=== PATIENT | female | born 1980 | race Caucasian/White ===

== ENCOUNTER 2017-08-16 14:47 | Emergency (ER) | payer BC, OTHER ==
[~2017-08-16] VITALS: Ht 162.6 cm; Wt 91.0 kg
[~2017-08-16 14:47] MED LIST: CLR10 PO; FRRS300 PO; MTR600X PO
[2017-08-16 14:51] VITALS: Ht 162.6 cm; Wt 91.0 kg
[2017-08-16] MEDS ORDERED: PROPARACAINE HCL 0.5% OP SOLN 15 ML BTL OP STA (15:05)
--- NOTE | 2017-08-16 15:07 | EMERGENCY ROOM VISIT NOTE ---
History Report prepared by Selwyn: Sharon Finnegan Under the Supervision of: Dr. Gee Deluna M.D. First contact with patient: 14:53 Chief Complaint: CHEMICAL EXPOSURE Stated Complaint: HCL ACID BURN DOWN NECK AND FACE History of Present Illness The patient is a 36 year old female who presents to the Emergency Room with complaints of a sudden chemical exposure occurring 1 hour prior to arrival. The patient states that she works for the [employer] in [place]. The patient states that she was getting rid of 50% Hydrochloric acid solution. She reports that she was empting 2 ml and 5 ml vials of the acid when the last vial shattered and spilled on her. She reports that she immediately started to rinse herself with water for about 5 minutes. She reports that she was using her hands to splash the water onto herself and states that she does not believe that she got any acid on her hands. She states that she did get some in her hair but denies getting any in her eyes or mouth. The patient states that she was not wearing glasses when this happened. The patient reports that the acid started burning instantly and now reports having tingling on the left side of her face and neck. The patient states that her unit secretary at work called [employer] Resources, who recommended that the patient come to the ER. She denies having fevers, chills, cough, and congestion and reports that she is otherwise a healthy individual. Source of History: patient Onset: 1 hour prior to arrival Position: head (face), neck Quality: other (hydrochloric acid exposure ) Timing: other (sudden ) Associated Symptoms: No fevers, No chills, No cough Review of Systems See HPI for pertinent positives and negatives. A total of ten systems were reviewed and were otherwise negative. Past Medical & Surgical Medical Problems: (1) No active medical problems Family History No pertinent family history Social History Smoking Status: Never Smoker Marital Status: Housing Status: lives with significant other Occupation Status: employed Current/Historical Medications No Active Prescriptions or Reported Meds Allergies Coded Allergies: No Known Allergies (Unverified , 09/13/13) Physical Exam Vital Signs Date Time Temp Pulse Resp B/P (MAP) Pulse Ox O2 Delivery O2 Flow Rate FiO2 08/16/17 16:35 36.8 82 18 145/80 100 08/16/17 14:51 36.8 79 16 151/79 100 Room Air Physical Exam GENERAL: Awake, alert, well-appearing, in no distress HENT: Oropharynx unremarkable. No oral pharyngeal involvement. No stridor. No pain with tracheal manipulation. EYES: Normal conjunctiva. Sclera non-icteric. NECK: Supple. No nuchal rigidity. FROM. No JVD. RESPIRATORY: Clear to auscultation. CARDIAC: Regular rate, normal rhythm. Extremities warm and well perfused. Pulses equal. ABDOMEN: Soft, non-distended. No tenderness to palpation. No rebound or guarding. No masses. RECTAL: Deferred. MUSCULOSKELETAL: Chest examination reveals no tenderness. The back is symmetrical on inspection without obvious abnormality. There is no CVA tenderness to palpation. No joint edema. LOWER EXTREMITIES: Calves are equal size bilaterally and non-tender. No edema. No discoloration. NEURO: Normal sensorium. No sensory or motor deficits noted. SKIN: Minor excoriation to the right eyebrow and left oracle. Scattered .5cm punctuate areas of erythema on the anterior neck that are not warm or tender. Medical Decision & Procedures Procedure Slit Lamp Examination Indication:chemical exposure The bilateral eyes were prepped with topical proparacaine. Slit lamp examination was performed in the standard fashion. Cornea appeared clear with no abrasions or ulcerations. Anterior chamber clear. Scleral injection not present. No discharge present. Fluorescein examination performed and revealed no uptake. No foreign bodies noted. Negative Lorri sign. The patient tolerated the procedure well without complication. ED Course 1455: The patient was evaluated in room C11B. A complete history and physical exam was performed. 1610: I performed a slit lamp exam. 1625: I reevaluated the patient. Discussed results and discharge instructions: She verbalized understanding and agreement. The patient is ready for discharge. Medical Decision I reviewed the patient's past medical history, medications, and the nursing notes as described above. The patient's presentation and history were concerning for soft tissue injury, airway compromise, and ocular injury. The patient is a 36-year-old woman who presents emergency department after exposure to 50% HCl at work where she works at the [employer] per hpi. Patient reports she was disposing of all bottles of acid when a 5 mL bottle of 50% HCL broke in her bare hands and splashed into the air onto her face and shirt for which she immediately washed her face for 5 minutes and then remove her shirt per hpi. She denies any pain or irritation in her eyes or mouth. Denies any difficulty breathing or swallowing. Only complaint is mild irritation and scattered isolated areas including her right eyebrow and left ear, as well as 0.5 cm punctate areas on her neck. These areas are nontender although with mild irritation. Patient was placed in the decontamination shower and was washed for 20 minutes. Visual acuity was performed and is at baseline. Normal conjunctiva. Slit-lamp exam and fluorescein exam were unremarkable. No evidence of ocular involvement/corneal abrasion or ulceration. Findings and plan for follow-up reviewed with patient. Patient agreeable and d/c'd per discharge instructions. Medication Reconcilliation Current Medication List: was personally reviewed by me Blood Pressure Screening Patient's blood pressure: Elevated blood pressure Blood pressure disposition: Elevated BP felt to be situational Impression Primary Impression: Exposure to hazardous chemical Scribe Attestation The scribe's documentation has been prepared under my direction and personally reviewed by me in its entirety. I confirm that the note above accurately reflects all work, treatment, procedures, and medical decision making performed by me. Departure Information Dispostion Home / Self-Care Prescriptions No Active Prescriptions or Reported Meds Referrals Melquiades Santiago D.O. (PCP) Forms Call Back Authorization, HOME CARE DOCUMENTATION FORM, IMPORTANT VISIT INFORMATION Patient Instructions ED Burn Chemical, ED Chemical Exp Skin, [facility] Additional Instructions Please follow up with your primary care physician in the next 1-3 days for re- evaluation. You were found have minor skin irritation related to your chemical exposure. Otherwise, your exam did not show signs of an emergent condition at this time. Acetaminophen or ibuprofen for pain and fevers as needed. Use vaseline or antibiotic ointment for irritation/moisturizing. Drink plenty of fluids to ensure hydration. Return to the emergency department for worsening symptoms as described in the accompanying instructions.
[2017-08-16 16:35] VITALS: BP 145/80; PULSE 82; TEMP 36.8; O2SAT 100
== END 2017-08-16 16:36 | disposition home or self-care (01) ==
LOC: C.EDB 14:48 → C.EDC 16:36
DX: Z77.098 Contact with and (suspected) exposure to other hazardous, chiefly nonmedicinal, chemicals (principal)